=== PATIENT | female | born 1950 | race Caucasian/White ===

== ENCOUNTER 2019-03-14 07:46 | Inpatient (IN) | payer MEDICARE, BC ==
[2019-03-14] VITALS (7 sets, daily range): BP systolic 101–141; BP diastolic 47–76; BMI 37.3
[~2019-03-14] VITALS: Ht 162.6 cm; Wt 98.4 kg
[2019-03-14] MEDS ORDERED: AMBIEN5 MG PO (07:51)
[2019-03-14] MEDS ORDERED: OXYCODONE HCL E20 MG PO (07:51)
[2019-03-14] MEDS ORDERED: PROZAC20 MG PO (07:52)
[2019-03-14] MEDS ORDERED: XANAX1 MG PO (07:52)
[2019-03-14] MEDS ORDERED: BACLOFEN20 M1 PO (07:52)
[2019-03-14] MEDS ORDERED: FOLIC ACID1 MG PO (07:52)
[2019-03-14] MEDS ORDERED: NEURONTIN 300300 MG PO (07:53)
[2019-03-14] MEDS ORDERED: TOPROL XL25 MG PO (07:53)
[2019-03-14] MEDS ORDERED: ROBAXIN500 MG PO (07:53)
[2019-03-14] MEDS ORDERED: PROTONIX40 MG PO (07:54)
[2019-03-14 08:41] LABS: HEMATOCRIT 40.6 % (36.0-48.0); HEMOGLOBIN 13.5 g/dL (12-16); MCH 29.7 pg (26.0-34.0); MCHC 33.3 g/dL (31.0-37.0); MCV 89.4 fL (80.0-100.0); MEAN PLATELET VOLUME 12.1 fL (7.4-10.4); PLATELET COUNT 185 10x3/uL (130-400); RBC 4.54 10x6/uL (4.00-5.40); RDW 14.5 % (11.5-14.5); WBC 24.8 10x3/uL (4.8-10.8)
[2019-03-14 08:43] LABS: ALBUMIN 3.1 g/dL (3.4-5.0); BILIRUBIN - TOTAL 0.62 mg/dL (0.2-1.3); CALCIUM 8.6 mg/dL (8.5-10.1); CARBON DIOXIDE 24.8 mmol/L (21.0-32.0); CREATININE - SERUM 1.1 mg/dL (0.6-1.3); MAGNESIUM - SERUM 2.2 mg/dL (1.8-2.4); POTASSIUM - SERUM 3.8 mmol/L (3.5-5.1); PROTEIN - SERUM 7.5 g/dL (6.4-8.2)
[2019-03-14 09:33] LABS: ANISOCYTOSIS OCC; BASOPHILS 1 % (0-2); HYPOCHROMASIA OCC; LYMPHOCYTES 7 % (15-50); MONOCYTES 11 % (2-11); NEUTROPHILS 74 % (40-80); PLATELET ESTIMATE NORMAL; ROULEAUX OCC
[2019-03-14 10:34] LABS: APPEARANCE HAZY (CLEAR); BILIRUBIN NEGATIVE (NEGATIVE); COLOR DK YELLOW (YELLOW); GLUCOSE NEGATIVE (NEGATIVE); KETONE NEGATIVE (NEGATIVE); NITRITE NEGATIVE (NEGATIVE); PROTEIN TRACE mg/dL (NEGATIVE); SPECIFIC GRAVITY 1.025 (1.005-1.020); UROBILINOGEN NORMAL (NORMAL)
[2019-03-14 10:35] LABS: BACTERIA FEW /hpf (NONE SEEN); EPITHELIAL CELLS 0-5 /hpf (0-5); MUCUS <1+ /lpf (NONE SEEN); RED CELLS - URINE OCC /hpf (0-5); WHITE CELLS - URINE RARE /hpf (0-5)
[2019-03-15 03:45] VITALS: BP 146/78
[2019-03-15 07:06] LABS: BASOPHILS 0.1 % (0-2); EOSINOPHILS 1.2 % (0-7); HEMATOCRIT 37.8 % (36.0-48.0); HEMOGLOBIN 12.4 g/dL (12-16); IMMATURE GRANULOCYTES 0.3 % (0-5); LYMPHOCYTES 13.8 % (15-50); MCH 29.5 pg (26.0-34.0); MCHC 32.8 g/dL (31.0-37.0); MCV 89.8 fL (80.0-100.0); MEAN PLATELET VOLUME 12.3 fL (7.4-10.4); MONOCYTES 7.4 % (2-11); NEUTROPHILS 77.2 % (40-80); PLATELET COUNT 185 10x3/uL (130-400); RBC 4.21 10x6/uL (4.00-5.40); RDW 14.3 % (11.5-14.5)
[2019-03-15 07:29] LABS: ALBUMIN 2.7 g/dL (3.4-5.0); ALKALINE PHOSPHATASE 162 U/L (46-116); ALT (SGPT) 34 U/L (10-68); BILIRUBIN - TOTAL 0.42 mg/dL (0.2-1.3); CALC OSMOLALITY 286 mosm/kg (275-300); CALCIUM 8.6 mg/dL (8.5-10.1); CARBON DIOXIDE 25.1 mmol/L (21.0-32.0); CHLORIDE - SERUM 107 mmol/L (98-107); CREATININE - SERUM 0.8 mg/dL (0.6-1.3); GLUCOSE 104 mg/dL (74-106); POTASSIUM - SERUM 3.3 mmol/L (3.5-5.1); SODIUM 143 mmol/L (136-145); UREA NITROGEN 17 mg/dL (7-18); eGFR NON AFRICAN AMERICAN 76 mL/min (90-120)
[2019-03-15 08:13] LABS: INR 1.2 (0.85-1.17); PROTIME 14.7 SECONDS (11.6-15.0)
[2019-03-15 08:48] VITALS: BP 173/94
[2019-03-15 13:08] LABS: APPEARANCE - CSF PINK
[2019-03-15 13:12] LABS: GLUCOSE - CSF 59 MG/DL (40-75); PROTEIN - CSF 53 MG/DL (12-60); RBC - CSF 5780 cmm (0-0)
[2019-03-15 13:27] VITALS: BP 189/87
[2019-03-15 15:24] VITALS: Ht 162.6 cm; Wt 98.4 kg
[2019-03-15] MEDS ORDERED: AMOXICILLIN500 M1 PO (20:24)
[2019-03-17 13:13] LABS: FUNGUS STAIN Final report (())
== END 2019-03-15 20:54 | disposition home or self-care (01) | DRG 872 ==
LOC: D.ER 07:46 → D.EDHOLD 11:03 → OBSVTIME 11:03 → D.MS 11:19
PROVIDERS: Emergency Medicine; General Practice; Internal Medicine Nephrology; ADMIT Family Medicine; ATTEND Family Medicine
PROC: 009U3ZZ Drainage of Spinal Canal, Percutaneous Approach (ICD-10-PCS; principal; 2019-03-15 11:00)
DX: A41.9 Sepsis, unspecified organism (principal); N39.0 Urinary tract infection, site not specified; J30.9 Allergic rhinitis, unspecified; F32.9 Major depressive disorder, single episode, unspecified; F41.9 Anxiety disorder, unspecified; K21.9 Gastro-esophageal reflux disease without esophagitis; I10 Essential (primary) hypertension; Z86.73 Personal history of transient ischemic attack (TIA), and cerebral infarction without residual deficits

== ENCOUNTER 2019-03-31 14:38 | Inpatient (IN) | payer MEDICARE, BC ==
[~2019-03-31] VITALS: Ht 162.6 cm; Wt 103.0 kg
[~2019-03-31 14:38] MED LIST: AMBIEN5 MG PO; AMOXICILLIN500 M1 PO; BACLOFEN20 M1 PO; FOLIC ACID1 MG PO; NEURONTIN 300300 MG PO; OXYCODONE HCL E20 MG PO; PROTONIX40 MG PO; PROZAC20 MG PO; ROBAXIN500 MG PO; TOPROL XL25 MG PO; XANAX1 MG PO
[2019-03-31 15:39] LABS: HEMATOCRIT 36.1 % (36.0-48.0); HEMOGLOBIN 11.7 g/dL (12-16); MCH 29.3 pg (26.0-34.0); MCHC 32.4 g/dL (31.0-37.0); MCV 90.3 fL (80.0-100.0); MEAN PLATELET VOLUME 11.9 fL (7.4-10.4); PLATELET COUNT 256 10x3/uL (130-400); RDW 15.1 % (11.5-14.5); WBC 27.8 10x3/uL (4.8-10.8)
[2019-03-31 15:51] LABS: ALBUMIN 2.9 g/dL (3.4-5.0); ANION GAP 11.2 mmol/L (8-16); BILIRUBIN - TOTAL 0.47 mg/dL (0.2-1.3); CALCIUM 8.2 mg/dL (8.5-10.1); CARBON DIOXIDE 28.7 mmol/L (21.0-32.0); CREATININE - SERUM 1.1 mg/dL (0.6-1.3); POTASSIUM - SERUM 3.9 mmol/L (3.5-5.1); PROTEIN - SERUM 6.2 g/dL (6.4-8.2)
[2019-03-31 17:00] LABS: EOSINOPHILS 1 % (0-7); LYMPHOCYTES 14 % (15-50); MONOCYTES 1 % (2-11); NEUTROPHILS 84 % (40-80); PLATELET ESTIMATE NORMAL
[2019-03-31 17:23] LABS: APPEARANCE CLEAR (CLEAR); BILIRUBIN NEGATIVE (NEGATIVE); COLOR YELLOW (YELLOW); GLUCOSE NEGATIVE (NEGATIVE); KETONE NEGATIVE (NEGATIVE); NITRITE NEGATIVE (NEGATIVE); PROTEIN NEGATIVE (NEGATIVE); SPECIFIC GRAVITY 1.015 (1.005-1.020); UROBILINOGEN NORMAL (NORMAL)
--- NOTE | 2019-03-31 17:37 | NUR ---
POSITIVE FLU B. EDP AND NURSE NOTIFIED.
[2019-03-31 21:00] VITALS: BP 144/61; BP 146/76
[2019-04-01] VITALS (7 sets, daily range): BP systolic 134–158; BP diastolic 59–90; Ht 162.6 cm; Wt 103.0 kg
[2019-04-01 06:57] LABS: BASOPHILS 0.1 % (0-2); EOSINOPHILS 1.2 % (0-7); HEMATOCRIT 33.2 % (36.0-48.0); IMMATURE GRANULOCYTES 0.2 % (0-5); LYMPHOCYTES 12.8 % (15-50); MCH 29.6 pg (26.0-34.0); MCHC 33.1 g/dL (31.0-37.0); MCV 89.2 fL (80.0-100.0); MEAN PLATELET VOLUME 12.2 fL (7.4-10.4); MONOCYTES 4.2 % (2-11); NEUTROPHILS 81.5 % (40-80); RBC 3.72 10x6/uL (4.00-5.40)
[2019-04-01 07:00] LABS: PLATELET COUNT 203 10x3/uL (130-400); WBC 16.4 10x3/uL (4.8-10.8)
--- NOTE | 2019-04-01 07:39 | NUR ---
INITIAL ROUNDING ON THE PATIENT, SHE IS ASLEEP ON HER RIGHT SIDE, LIGHTS AND TV OFF. CALL LIGHT IN REACH
[2019-04-01 09:11] LABS: ALBUMIN 2.7 g/dL (3.4-5.0); ALKALINE PHOSPHATASE 126 U/L (46-116); ALT (SGPT) 24 U/L (10-68); BILIRUBIN - TOTAL 0.59 mg/dL (0.2-1.3); CALCIUM 8.3 mg/dL (8.5-10.1); CARBON DIOXIDE 23.8 mmol/L (21.0-32.0); CHLORIDE - SERUM 108 mmol/L (98-107); GLUCOSE 103 mg/dL (74-106); POTASSIUM - SERUM 3.8 mmol/L (3.5-5.1); PRO BNP 1093 pg/mL (0-125); PROTEIN - SERUM 5.6 g/dL (6.4-8.2); SODIUM 142 mmol/L (136-145)
[2019-04-01 09:13] LABS: CALC OSMOLALITY 283 mosm/kg (275-300); CREATININE - SERUM 0.5 mg/dL (0.6-1.3); TROPONIN-I < 0.017 ng/mL (0.000-0.060); UREA NITROGEN 16 mg/dL (7-18); eGFR NON AFRICAN AMERICAN > 90 mL/min (90-120)
[2019-04-01 10:42] LABS: % SATURATION 11 % (15-55); IRON 26 ug/dl (35-150); TOTAL IRON BIND CAPACITY 229 ug/dl (260-445); UNSAT IRON BIND CAPACITY 203 ug/dl (150-375)
[2019-04-02] VITALS: BP 133/61
[2019-04-02 04:00] VITALS: BP 142/55
--- NOTE | 2019-04-02 07:15 | NUR ---
PT SITTING UP IN BED, EATING BREAKFAST. NO C/O PAIN. NO S/S OF ACUTE DISTRESS NOTED. ALERT AND ORIENTED. ON DROPLET PRECAUTIONS FOR FLU B. UP WITH ASSIST. ON ELECTROLYTE PROTOCOL. IV TO LEFT FOREARM, NS INFUSING @ 75ML/HR. SITE PATENT WITHOUT REDNESS OR SWELLING. PT DENIES ANYTHING FURTHER AT THIS TIME. CALL LIGHT IN REACH. WILL CONTINUE TO MONITOR.
[2019-04-02 08:11] LABS: CALC OSMOLALITY 286 mosm/kg (275-300); CARBON DIOXIDE 27.6 mmol/L (21.0-32.0); CHLORIDE - SERUM 109 mmol/L (98-107); GLUCOSE 95 mg/dL (74-106); POTASSIUM - SERUM 3.5 mmol/L (3.5-5.1); SODIUM 143 mmol/L (136-145); UREA NITROGEN 18 mg/dL (7-18); eGFR NON AFRICAN AMERICAN 89 mL/min (90-120)
[2019-04-02 08:16] LABS: BASOPHILS 0.1 % (0-2); EOSINOPHILS 1.6 % (0-7); HEMATOCRIT 30.9 % (36.0-48.0); HEMOGLOBIN 10.1 g/dL (12-16); IMMATURE GRANULOCYTES 0.1 % (0-5); LYMPHOCYTES 24.4 % (15-50); MCH 29.2 pg (26.0-34.0); MCHC 32.7 g/dL (31.0-37.0); MCV 89.3 fL (80.0-100.0); MEAN PLATELET VOLUME 12.3 fL (7.4-10.4); MONOCYTES 6.5 % (2-11); NEUTROPHILS 67.3 % (40-80); PLATELET COUNT 204 10x3/uL (130-400); RBC 3.46 10x6/uL (4.00-5.40); RDW 14.8 % (11.5-14.5)
[2019-04-02 08:24] LABS: WBC 9.9 10x3/uL (4.8-10.8)
[2019-04-02 08:43] LABS: CREATININE - SERUM 0.7 mg/dL (0.6-1.3)
[2019-04-02 09:41] VITALS: BP 155/70
[2019-04-02] MEDS ORDERED: ZITHROMAX500 MG PO (09:51)
[2019-04-02] MEDS ORDERED: OMNICEF300 MG PO (09:51)
[2019-04-02] MEDS ORDERED: TAMIFLU75 MG PO (09:52)
--- NOTE | 2019-04-02 11:40 | NUR ---
PT DISCHARGED HOME WITH VIA WHEELCHAIR. WENT OVER DISCHARGE INSTRUCTIONS WITH PT, PT DENIES ANY CONCERNS AND ACKNOWLEDGED INSTRUCTIONS. DISCONTINUED IV, CATHETER TIP INTACT.
--- NOTE | 2019-04-02 11:43 | MORECARE ---
CASE MANAGEMENT DISCHARGE SUMMARY PATIENT: JENNY PEREZ UNIT: [id number] ADM DATE: 03/31/19 AGE: 68 : 52 SEX: F ROOM/BED: D.1202 AUTHOR: HANY GONZALEZ PHYSICIAN: REFERRING PHYSICIAN: KRISTINA BAIRES MD DATE OF SERVICE: 04/02/19 Discharge Plan Patient Name: JENNY PEREZ Facility: [facility]:[place] : 1950 Planned Disposition: Home Anticipated Discharge Date: 04/02/19 Discharge Date: Expected LOS: 2 Initial Reviewer: [email or web address] Initial Review Date: 03/31/2019 Generated: 04/02/19 12:43 pm DCPIA - Discharge Planning Initial Assessment Updated by [email or web address]: Debbie Jones on 04/02/19 11:43 am * Is the patient Alert and Oriented? Yes * How many steps to enter\exit or inside your home? 2/3 W/ [place] * PCP DR DOMENICO ELDER IN [place] * Pharmacy [facility] IN [place] * Preadmission Environment Home with Family * ADLs Independent * Equipment Cane Walker * Other Equipment DENIES ANY ADDITIONAL DME * List name and contact numbers for known caregivers / representatives who currently or will assist patient after discharge: TRAY PEREZ- [facility]- [phone] * Verbal permission to speak to the caregivers and representatives has been obtained from the patient. No * Community resources currently utilized None * Please name any agencies selected above. N/A * Additional services required to return to the preadmission environment? No * Can the patient safely return to the preadmission environment? Yes * Has this patient been hospitalized within the prior 30 days at any hospital? Yes Patient Name: JENNY PEREZ Page [id number] at 1143 All edits/amendments must be made on the electronic document DICTATION DATE: 04/02/19 1142 SOCIAL MEDIA SR STRATEGY MANAGER: LEILANI 04/02/19 1142 RPT#: [id number] DC DATE: STATUS: ADM IN [facility] [address] [place] [address] END OF REPORT
--- NOTE | 2019-04-02 12:00 | MORECARE ---
CASE MANAGEMENT DISCHARGE SUMMARY PATIENT: JENNY PEREZ UNIT: [id number] ADM DATE: 03/31/19 AGE: 68 : 52 SEX: F ROOM/BED: D.1202 AUTHOR: CARLOS,DOC PHYSICIAN: REFERRING PHYSICIAN: KRISTINA BAIRES MD DATE OF SERVICE: 04/02/19 Discharge Plan Patient Name: JENNY PEREZ Facility: [facility]:[place] : 1950 Planned Disposition: Home Anticipated Discharge Date: 04/02/19 Discharge Date: 04/02/2019 Expected LOS: 2 Initial Reviewer: [email or web address] Initial Review Date: 03/31/2019 Generated: 04/02/19 12:59 pm Comments DCP- Discharge Planning Updated by [email or web address]: Debbie Jones on 04/02/19 10:[address] CM MET WITH THE PATIENT THIS AM. CM RECEIVED VERBAL CONSENT TO PROCEED WITH INITIAL ASSESSMENT AND DISCHARGE PLANNING NEEDS. DISCUSSED CM ROLE AND DISCUSSED AVAILABLE SERVICES. LIVES WITH HER SPOUSE, HER 92 YEAR OLD FATHER , HER DAUGHTER AND THE DAUGHTER'S TWO CHILDREN. THEY LIVES IN A [place]. THERE ARE 3/4 STEPS TO ENTER WITH A RAILING. PATIENT HAD A RECENT ADMISSION FOR "TONSILLITIS". PATIENT DOES NOT REQUIRE OR DESIRE ANY HOME HEALTH OR COMMUNITY SERVICES. SHE HAS A CANE WHICH SHE USES OCCASIONALLY AND HAS A WALKER. NO O2 OR NEBULIZER, SHE DOES HAVE A MDI, SUSAN. STATES SHE HAS A HX OF PNEUMONIA AND RESPIRATORY ISSUES SINCE MOVING INTO THEIR HOME WHICH IS STATE OWNED. ADVISED SHE MAY WANT TO DISCUSS W/ PROVIDER. PCP- DR DOMENICO ELDER IN [place]. SHE SEES HIS MATTRESS FINISHER GUEVARA AT TIMES. PHARMACY- [facility] IN [place] SHE DENIES ANY NEEDS, STATES SHE DOES FEEL BETTER. IS READY TO DISCHARGE TO HOME. DCPIA - Discharge Planning Initial Assessment Updated by [email or web address]: Debbie Jones on 04/02/19 11:43 am * Is the patient Alert and Oriented? Yes * How many steps to enter\\exit or inside your home? 2/3 W/ [place] * PCP DR DOMENICO ELDER IN [place] * Pharmacy [facility] IN [place] * Preadmission Environment Home with Family * ADLs Independent * Equipment Cane Walker * Other Equipment DENIES ANY ADDITIONAL DME * List name and contact numbers for known caregivers / representatives who currently or will assist patient after discharge: TRAY PEREZ- SPOUSE- [phone] * Verbal permission to speak to the caregivers and representatives has been obtained from the patient. No * Community resources currently utilized None * Please name any agencies selected above. N/A * Additional services required to return to the preadmission environment? No * Can the patient safely return to the preadmission environment? Yes * Has this patient been hospitalized within the prior 30 days at any hospital? Yes Last DP export: 04/02/19 10:43 a Patient Name: JENNY PEREZ Page [id number] at 1200 All edits/amendments must be made on the electronic document DICTATION DATE: 04/02/191158 HEAD STILL OPERATOR: LEILANI 04/02/19 1159 RPT#: [id number] DC DATE:04/02/19 STATUS: DIS IN [facility] [address] [place] [address] END OF REPORT
[2019-04-02 17:08] LABS: FOLATE (FOLIC ACID) - SERUM 19.2 ng/mL (>3.0)
== END 2019-04-02 11:46 | disposition home or self-care (01) | DRG 193 ==
LOC: D.ER 14:38 → D.M3 19:05
PROVIDERS: Family Medicine; ADMIT Internal Medicine Nephrology; ATTEND Internal Medicine Nephrology
DX: J10.00 Influenza due to other identified influenza virus with unspecified type of pneumonia (principal); J96.01 Acute respiratory failure with hypoxia; N17.9 Acute kidney failure, unspecified; D64.9 Anemia, unspecified; K21.9 Gastro-esophageal reflux disease without esophagitis; I10 Essential (primary) hypertension; F41.9 Anxiety disorder, unspecified; F32.9 Major depressive disorder, single episode, unspecified